=== PATIENT | male | born 1955 | race Caucasian/White ===

== ENCOUNTER → 2018-02-26 | Outpatient (CLI) | payer MEDICARE ==
[~2018-02-26] MED LIST: AMBIEN10 MG PO; ARMOUR THYROID60 MG PO; DEPAKOTE250 MG PO; FENOFIBRATE145 MG PO; IOPAMIDOL 300 MG/ML 15ML VIAL IT ONE; KLOR-CON 1010 MEQ PO; LASIX40 MG PO; LIDOCAINE HCL 1% LOCAL INJ 20 ML VIAL ONE; LIPITOR40 MG PO; PROPECIA1 MG PO; VENLAFAXINE HC225 MG PO; WARFARIN PO
--- NOTE | 2018-02-26 13:38 | Diagnostic Imaging Report ---
Left shoulder arthrogram 02/26/2018 Pre-Procedure Diagnosis: Left shoulder pain Post-procedure Diagnosis:Full-thickness rotator cuff tear. Reimbursement Consultant: Gopal Milian Merchant Seaman: None Sedation: None. 1% lidocaine was used for local anesthesia. Radiation Dose: 18.35 mGy (cumulative air kerma) Fluoroscopy time: 1.1 minutes Estimate blood loss: None Blood administered: None Complications: None Implants/Grafts: None Specimen: None Procedure: Informed consent was obtained and the patient placed supine. A timeout was performed. The left shoulder was prepped and draped in standard sterile fashion. 20 mL solution consisting of 5 mL normal saline and 15 mL Isovue-300 iodinated contrast was injected into the left glenohumeral joint. Spot images were obtained in multiple projections. Contrast extends into the subacromial bursa. Findings: Full-thickness rotator cuff tear. Impression: Complete left rotator cuff tear. This report was generated with voice-recognition technology. Errors in ski lift attendant can occur. Please interpret accordingly and contact a radiologist if there are any questions regarding the report. Signed by: Dr. Lux Milian M.D. on 02/26/2018 1:34 PM
== END ==
LOC: DX 11:18
PROVIDERS: ATTEND Specialist
DX: S43.432D Superior glenoid labrum lesion of left shoulder, subsequent encounter (principal)
CPT/HCPCS: 23350; 73040; 77002; J2001; Q9967

== ENCOUNTER → 2018-05-09 | Outpatient (CLI) | payer MEDICARE ==
[~2018-05-09] MED LIST changes: +GADOBENATE DIMEGLUMINE 0 ML IV ONE; -IOPAMIDOL 300 MG/ML 15ML VIAL IT ONE; -LIDOCAINE HCL 1% LOCAL INJ 20 ML VIAL ONE; +LIDOCAINE HCL 2% LOCAL 20 ML VIAL ONE; +SODIUM CHLORIDE 0.9% 500ML 500 ML ONE
== END ==
LOC: DX 12:50
PROVIDERS: ATTEND Specialist
DX: S46.091D Other injury of muscle(s) and tendon(s) of the rotator cuff of right shoulder, subsequent encounter (principal)
CPT/HCPCS: 73040; J2001; J7040

== ENCOUNTER → 2018-05-21 | Day surgery (SDC) | payer MEDICARE ==
[2018-05-20 14:22] LABS: BASOPHILS # (AUTO) 0.1 (0.0-0.1); EOSINOPHILS # (AUTO) 0.2 (0.0-0.4); EOSINOPHILS % 2.4 % (0.0-6.0); HEMATOCRIT 44.3 % (38.2-49.6); HEMOGLOBIN 14.8 g/dL (14.0-18.0); LYMPHOCYTES # (AUTO) 2.8 (1.0-3.2); LYMPHOCYTES % 34.7 % (18.0-39.1); MEAN CORPUSCULAR HEMOGLOBIN 29.6 pg (28-32); MEAN CORPUSCULAR HGB CONC 33.4 g/dL (31-35); MEAN CORPUSCULAR VOLUME 88.6 fL (81-99); MONOCYTES # (AUTO) 0.7 (0.2-0.8); MONOCYTES % 8.1 % (4.4-11.3); NEUTROPHILS # (AUTO) 4.3 (2.1-6.9); NEUTROPHILS % 53.4 % (38.7-80.0); PLATELET COUNT 328 x10e3/uL (140-360); RED CELL DISTRIBUTION WIDTH 13.2 % (11.7-14.4)
[2018-05-20 14:34] LABS: PROTHROMBIN TIME 12.4 seconds (11.9-14.5)
[2018-05-20 14:35] LABS: PARTIAL THROMBOPLASTIN TIME 24.3 seconds (23.8-35.5)
[2018-05-20 14:41] LABS: ANION GAP 14.9 mmol/L (8-16); CALCIUM 9.8 mg/dL (8.4-10.2); CREATININE, SERUM 1.59 mg/dL (0.72-1.25); POTASSIUM 3.9 mmol/L (3.5-5.1)
--- NOTE | 2018-05-20 14:56 | Diagnostic Imaging Report ---
PROCEDURE: Frontal and lateral views of the chest. COMPARISON: Patients [facility], , CHEST 2 VIEWS, 09/03/2016, 12:08. INDICATIONS: PREOPERATIVE CHEST XRAY FOR RIGHT SHOULDER SURGERY FINDINGS: Lines/tubes: Stable left upper chest multilead cardiac device. Lungs: The lungs are well inflated and grossly clear. There is no evidence of pneumonia or pulmonary edema. Pleura: There is no pleural effusion or pneumothorax. Heart and mediastinum: Cardiac silhouette is unremarkable. Pulmonary vasculature is normal. Bones: No acute bony abnormality. IMPRESSION: 1. No acute cardiopulmonary abnormalities. Michael Arteaga M.D. Dictated by: Michael Arteaga M.D. on 05/20/2018 at 15:02 Electronically approved by: Michael Arteaga M.D. on 05/20/2018 at 15:02
[~2018-05-21] MED LIST changes: +ALLOPURINOL100 MG PO; +CEFAZOLIN SOD 2 GM/D5W 50ML 50 ML IV ONE; +DEXAMETHASONE SOD PHOS INJ 4 MG/ML VIAL ONE; +EFFEXOR XR 3737.5 MG PO; +FENTANYL CITRATE/PF 100MCG/2 ML INJ ONE; -GADOBENATE DIMEGLUMINE 0 ML IV ONE; +GLYCOPYRROLATE INJ 1MG/ 5 ML SYR ONE; +LIDOCAINE HCL 2% LOCAL INJ 5 ML SDV VIAL INJ ONE; +MIDAZOLAM HCL 2 MG/2 ML VIAL ONE; +NEOSTIGMINE 5 MG/5ML SYR ONE; +ONDANSETRON HCL INJ 2 MG/ML VIAL ONE; +PHENYLEPHRINE HCL 1% 10 MG/ML VIAL ONE; +PROPOFOL IV EMULSION 10 MG/ML 20 ML VIAL ONE; +ROCURONIUM BROMIDE 10 MG/ML 5ML VIAL ONE; +ROPIVACAINE 0.5% 5 MG/ML 30 ML SDV ONE; +SEVOFLURANE INHAL SOLN 250 ML PEN BTL ONE; -SODIUM CHLORIDE 0.9% 500ML 500 ML ONE; +TRAZODONE HCL50 MG PO; +TYLENOL PO; +VASOPRESSIN INJ 20 UNIT/ML VIAL ONE
--- NOTE | 2018-05-23 21:12 | Operative Report ---
DATE OF PROCEDURE: May 21, 2018 PREOPERATIVE DIAGNOSES: 1. Right shoulder rotator cuff tear. 2. Right shoulder acromioclavicular joint arthritis. 3. Right shoulder impingement. POSTOPERATIVE DIAGNOSES: 1. Right shoulder impingement. 2. Right shoulder rotator cuff partial tear. 3. Right shoulder labrum and biceps tendon tear. 4. Right shoulder acromioclavicular joint arthritis. 5. Right shoulder synovitis. 6. Right shoulder chondromalacia, glenoid and humeral head. OPERATIONS/PROCEDURES PERFORMED: Patient underwent: 1. Right shoulder examination under anesthesia, right shoulder arthroscopy. 2. Right shoulder arthroscopic debridement of synovitis. 3. Right shoulder chondroplasty of the glenoid and the humeral head. 4. Right shoulder arthroscopic debridement of a partial rotator cuff tear. 5. Right shoulder arthroscopic biceps tenodesis. 6. Right shoulder arthroscopic subacromial decompression and acromioplasty. 7. Right shoulder arthroscopic distal clavicle resection. INVESTMENT BANKER: None. ANESTHESIA: General endotracheal intubation anesthesia. IV FLUIDS: Per the anesthesia record. BRIEF DESCRIPTION OF PATIENT'S OPERATIVE PROCEDURE: Mr. Rae was taken to the operating room and placed in the supine position on operating room table. Following induction of general anesthesia as well as endotracheal intubation, the patient's right upper extremity was examined under anesthesia. He was found to have full passive range of motion of the shoulder joint. There was no evidence of instability. The patient's upper extremity was prepped and draped in standard surgical fashion. Standard posterolateral and anterior portals were created without difficulty. The scope was placed within the shoulder joint atraumatically. Examination of the glenohumeral articulation demonstrated significant chondromalacia of both surfaces. There was diffuse synovitis within the shoulder joint. There were no loose bodies within the shoulder. A probe was placed within the anterior portal, and examination of the biceps tendon and labrum demonstrated a type 2 labral injury with extension into the biceps tendon. Greater than 50% of the biceps tendon was affected. Examination of the rotator cuff tissue demonstrated mild partial-thickness tearing of the anterior leading edge of the rotator cuff. A shaver was placed in the shoulder joint and the synovitis was debrided. The biceps tendon and labrum were also debrided at this time. Chondroplasties of the humeral head and glenoid were also performed. The partial rotator cuff tear was also debrided at this time. A more thorough examination of the biceps tendon following debridement demonstrated significant damage to the insertion site of the biceps tendon. Given the condition of the biceps tendon, a biceps tenodesis procedure was chosen. Sutures were shuttled through the rotator interval capturing the biceps tendon within the shoulder joint. The rotator interval had been debrided prior to shuttling the suture. A biter was then used to release the biceps tendon from its insertion into the glenoid. The biceps stump was then debrided further. The shoulder was then deflated of its sterile normal saline. Scope was then placed in subacromial space and a lateral portal was created through an outside-in technique. There was marked bursal inflammation in the subacromial space. A bursectomy was performed. The sutures were identified in the rotator interval. The sutures were tied over the rotator interval to complete the biceps tenodesis in the subacromial space. There was a downward sloping acromion. The coracoacromial ligament was resected. Examination of the rotator cuff tissues demonstrated erythema and inflammation within the rotator cuff tissue, but no evidence of tearing. An aggressive acromioplasty was performed at this time. The anterior portal was then transferred into the subacromial space at the level of the AC joint. A shaver was then used to resect a 1 cm section of the distal clavicle. The scope was then transferred to the anterior portal to confirm complete resection of the distal clavicle. The shoulder was then deflated of its sterile normal saline. The portal sites were closed and the patient was provided a shoulder immobilizer, awakened, and taken to the postanesthesia care unit in stable condition. Job#: [id number]
== END | disposition home or self-care (01) ==
LOC: OR 07:20
PROVIDERS: ATTEND Specialist
DX: M75.111 Incomplete rotator cuff tear or rupture of right shoulder, not specified as traumatic (principal); S46.211A Strain of muscle, fascia and tendon of other parts of biceps, right arm, initial encounter; M19.011 Primary osteoarthritis, right shoulder; M65.811 Other synovitis and tenosynovitis, right shoulder; M94.211 Chondromalacia, right shoulder; N20.0 Calculus of kidney; I50.22 Chronic systolic (congestive) heart failure; I47.2 Ventricular tachycardia; E78.2 Mixed hyperlipidemia; E03.8 Other specified hypothyroidism; F31.9 Bipolar disorder, unspecified; X58.XXXA Exposure to other specified factors, initial encounter; Z01.812 Encounter for preprocedural laboratory examination; Z01.818 Encounter for other preprocedural examination; Z95.810 Presence of automatic (implantable) cardiac defibrillator
CPT/HCPCS: 29824; 29826; 29828; 36415; 71046; 80048; 85025; 85610; 85730; J1100; J2001 ×2; J2250; J2370; J2405; J2795; J3490